=== PATIENT | male | born 1955 | race African-American/Black ===

== ENCOUNTER 2017-09-14 17:20 | Emergency (ER) | payer OTHER ==
[~2017-09-14] VITALS: Ht 182.9 cm; Wt 131.4 kg
[2017-09-14 18:55] VITALS: BP 150/70
== END 2017-09-14 18:55 | disposition home or self-care (01) ==
LOC: EME 17:20
DX: M72.2 Plantar fascial fibromatosis (principal); E11.9 Type 2 diabetes mellitus without complications; I10 Essential (primary) hypertension; Z87.891 Personal history of nicotine dependence
CPT/HCPCS: 99281; 99284; J1100